=== PATIENT | female | born 1990 | race Caucasian/White ===

== ENCOUNTER 2019-05-20 06:41 | Emergency (ER) | payer BC, OTHER ==
[~2019-05-20] VITALS: Ht 157.5 cm; Wt 50.0 kg
[2019-05-20 06:46] VITALS: Ht 157.5 cm; Wt 50.0 kg
[2019-05-20] MEDS ORDERED: SOD CHLORIDE 0.9% 1,000 ML IV STA (06:53)
[2019-05-20] MEDS ORDERED: LORAZEPAM 2 MG INJ IV ONE (07:00)
--- NOTE | 2019-05-20 07:27 | ERD ---
ER Documentation Chief Complaint Chief Complaint had "edible cookie" last night now has palpitations HPI This is a very pleasant 28-year-old female with a history of anxiety and bipolar disorder who presents to the emergency room complaining of palpitations, anxiety after having an edible cookie. Patient states that she ate an edible and feels extremely anxious with heart racing sensation. Patient is having occasional hallucinations. She denies intentional overdose. No other coingestions. No fevers or chills, falls or injuries. ROS All systems reviewed and are negative except as per history of present illness. FmHx Family History: No diabetes Physical Exam Vitals Vital Signs Date Temp Pulse Resp B/P (MAP) Pulse Ox O2 O2 Flow FiO2 Time Delivery Rate 05/20/19 111 17 108/78 100 Room Air 08:59 (88) 05/20/19 88 17 101/88 Nasal 2.0 07:44 (92) Cannula 05/20/19 117 17 110/77 100 Room Air 07:29 (88) 05/20/19 97.9 138 18 134/71 99 06:46 (92) Physical Exam General: Extremely anxious, appears intoxicated on marijuana Head: Normocephalic, atraumatic. Eyes: Pupils equally reactive, EOM intact ENT: Moist mucous membranes Neck: Supple, no lymphadenopathy Respiratory: Lungs clear bilaterally, no distress Cardiovascular: Tachycardia, no murmurs, rubs, or gallops Abdominal: Soft, non-tender, non-distended, no peritoneal signs : Deferred MSK: No edema, no unilateral swelling, 5/5 strength Neurologic: Alert and oriented, moving all extremities, normal speech, no focal weakness, no cerebellar signs Skin: No rash Psych: Anxious mood Results 24 hrs Current Medications Medications Dose Sig/Anai Start Time Status Last (Trade) Ordered Route PRN Stop Time Admin Dose Reason Admin Sodium 1,000 ml @ Q1H STAT 05/20/19 DC 05/20/19 Chloride 1,000 mls/hr IV 06:53 07:01 05/20/19 07:52 Lorazepam 1 mg ONCE ONCE 05/20/19 DC 05/20/19 (Ativan) IV 07:00 07:01 05/20/19 07:01 Procedures/MDM EKG, MONITORS, & DIAGNOSTIC IMAGING: EKG: I reviewed and interpreted a 12-lead EKG. Rhythm: Sinus tachycardia ST Changes: No contiguous ST segment elevations T waves: No contiguous T wave inversions Impression: No evidence of acute cardiac ischemia MEDICAL DECISION MAKING: Patient exhibits signs and symptoms very consistent with overdose of marijuana, edible form. Patient has anxiety palpitations and hallucinations. The patient gives a clear history of exposure. Patient exhibits no signs or symptoms concerning for traumatic injury infectious process or ischemic process. Reassurance was provided. Patient does not require significant laboratory testing or diagnostic imaging. ER COURSE: * Patient was given IV fluids, Ativan * The patient has dramatic improvement of her symptoms and heart rate is much improved. She has a sober ride home and can be safely discharged. * This was not intentional. CONSULTATION: None DISPOSITION PLAN: The patient does not have an identifiable emergent medical condition that warrants inpatient hospitalization at this time. The patient is deemed safe for discharge with outpatient follow-up. We discussed follow up with the patient's primary care doctor within 24 to 48 hours as needed. We also discussed return to the emergency room for worsening symptoms or worsening condition. Outpatient referral: None required Discharge Medications: None required Departure Diagnosis: Primary Impression: Marijuana intoxication Complication of substance-induced condition: uncomplicated Qualified Codes: F12.920 - Cannabis use, unspecified with intoxication, uncomplicated Additional Impression: Accidental overdose Encounter type: initial encounter Qualified Codes: T50.901A - Poisoning by unspecified drugs, medicaments and biological substances, accidental (unintentional), initial encounter Condition: WILL Duran MD May 20, 2019 07:27
[2019-05-20 08:59] VITALS: BP 108/78; RESP 17
[2019-05-20 09:23] VITALS: PULSE 104
== END 2019-05-20 09:48 | disposition home or self-care (01) ==
LOC: E/R 06:41
DX: T40.7X1A Poisoning by cannabis (derivatives), accidental (unintentional), initial encounter (principal)
CPT/HCPCS: 93005; 96361; 96374; 99284; J2060; J7030